=== PATIENT | female | born 1995 | race Caucasian/White ===

== ENCOUNTER 2017-08-25 17:26 | Emergency (ER) | payer OTHER ==
[~2017-08-25] VITALS: Ht 149.9 cm; Wt 68.0 kg
[2017-08-25 18:45] LABS: APPEARANCE,URINE CLEAR; BASOPHILS % (AUTO) 0.4 % (0.0-2.0); BILIRUBIN, URINE NEGATIVE (NEGATIVE); EOSINOPHILS % (AUTO) 0.6 % (0.0-3.0); GLUCOSE, URINE (UA) NEGATIVE (NEGATIVE); HEMATOCRIT 40.5 % (37.0-47.0); HEMOGLOBIN 13.7 G/DL (12.0-16.0); KETONES,URINE NEGATIVE (NEGATIVE); LEUKOCYTE ESTERASE ,URINE 3+ (NEGATIVE); LYMPHOCYTES % (AUTO) 26.1 % (20.0-45.0); MEAN CORPUSCULAR VOLUME 83 FL (80-99); MONOCYTES % (AUTO) 6.3 % (1.0-10.0); NEUTROPHILS % (AUTO) 66.6 % (45.0-75.0); NITRITE,URINE NEGATIVE (NEGATIVE); PH,URINE 6 (4.5-8.0); PLATELET COUNT 376 K/UL (150-450); PROTEIN,URINE 1+ (NEGATIVE); RED BLOOD COUNT 4.89 M/UL (4.20-5.40); RED CELL DISTRIBUTION WIDTH 12.5 % (11.6-14.8); UROBILINOGEN,URINE NORMAL MG/DL (0.0-1.0); WHITE BLOOD COUNT 8.1 K/UL (4.8-10.8)
[2017-08-25 18:46] LABS: COLOR,URINE YELLOW
[2017-08-25 19:02] LABS: ANION GAP 8 mmol/L (5-15); BLOOD UREA NITROGEN 9 mg/dL (7-18); CALCIUM 9.3 MG/DL (8.5-10.1); CARBON DIOXIDE 26 MMOL/L (21-32); CHLORIDE 103 MMOL/L (98-107); CREATININE 0.6 MG/DL (0.55-1.30); POTASSIUM 3.5 MMOL/L (3.5-5.1); SODIUM 137 MMOL/L (136-145)
[2017-08-25 19:07] LABS: ALANINE AMINOTRANSFERASE 54 U/L (12-78); ALBUMIN/GLOBULIN RATIO 0.9 (1.0-2.7); ALKALINE PHOSPHATASE 73 U/L (46-116); ASPARTATE AMINO TRANSFERASE 29 U/L (15-37); BILIRUBIN,TOTAL 0.2 MG/DL (0.2-1.0)
[2017-08-25 19:18] VITALS: BP 118/73
--- NOTE | 2017-08-25 19:27 | Emergency Room Report ---
History of Present Illness General Chief Complaint: Abdominal Pain Source: Patient Present Illness HPI 21-year-old female presents to the emergency department complaining of 7/10 in severity lower abdominal pain that she described as cramping. Patient reports that she is approximately 6 weeks her last period was in July. Patient states that she is . She denies vaginal bleeding, discharge, dysuria, hematuria or frequency. Denies nausea, vomiting, constipation or diarrhea. denies fevers or chills. was sent to ED by PMD for US to r/o ectopic. Allergies: Coded Allergies: No Known Allergies (Unverified , 08/25/17) Patient History Past Medical History: see triage record Past Surgical History: none Pertinent Family History: none Last Menstrual Period: 07/11/17 Now: Yes - 6 weeks : 1 Para: 0 Reviewed Nursing Documentation: PMH: Agreed, PSxH: Agreed Nursing Documentation-PMH Past Medical History: No Stated History Review of Systems All Other Systems: negative except mentioned in HPI Physical Exam Vital Signs Date Time Temp Pulse Resp B/P (MAP) Pulse Ox O2 Delivery O2 Flow Rate FiO2 08/25/17 17:36 98.1 75 17 123/74 97 Room Air 98.1 Sp02 EP Interpretation: reviewed, normal General Appearance: no apparent distress, alert, GCS 15, non-toxic Head: normocephalic, atraumatic ENT: hearing grossly normal, normal voice Neck: full range of motion Respiratory: lungs clear, normal breath sounds, speaking full sentences Cardiovascular #1: regular rate, rhythm Gastrointestinal: normal bowel sounds, non tender, soft Rectal: deferred Genitourinary: normal inspection, no CVA tenderness, other - deferred for US Musculoskeletal: back normal, gait/station normal, normal range of motion, non- tender Neurologic: alert, oriented x3, responsive, motor strength/tone normal, sensory intact, speech normal, grossly normal Psychiatric: judgement/insight normal Skin: normal color, no rash, warm/dry, well hydrated Medical Decision Making PA Attestation Dr. Foley is my supervising Physician whom patient management has been discussed with. Diagnostic Impression: Primary Impression: UTI (urinary tract infection) Qualified Codes: N30.01 - Acute cystitis with hematuria Additional Impressions: Positive test Abdominal pain during in first trimester Threatened in early ER Course 21-year-old female presents to the emergency department complaining of 7/10 in severity lower abdominal pain that she described as cramping. Patient reports that she is approximately 6 weeks her last period was in July. Patient states that she is . She denies vaginal bleeding, discharge, dysuria, hematuria or frequency. Denies nausea, vomiting, constipation or diarrhea. denies fevers or chills. was sent to ED by PMD for US to r/o ectopic. Ddx considered but are not limited to: , ectopic ,Spontaneous , Ovarian torsion, Ovarian cyst. PID, acute appendicitis, gall stones. Vital signs: are WNL, pt. is afebrile H&PE are most consistent with: Abdominal pain in early , possible ectopic. ORDERS: -Urine hcg- Positive -serum Hcg Quant: 3455 - Blood/RH type and screen- Pending - Ordered at 1804 was not drawn by RN. -Pelvic US complete- gestational sac in the uterus, no pole or HR. ED INTERVENTIONS: None at this time. - 4mg Zofran -1 Liter NS. DISCHARGE: At this time pt. is stable for d/c to home. Will provide printed patient care instructions, and any necessary prescriptions. Care plan and follow up instructions have been discussed with the patient prior to discharge. Labs Test 08/25/17 18:30 White Blood Count 8.1 K/UL (4.8-10.8) Red Blood Count 4.89 M/UL (4.20-5.40) Hemoglobin 13.7 G/DL (12.0-16.0) Hematocrit 40.5 % (37.0-47.0) Mean Corpuscular Volume 83 FL (80-99) Mean Corpuscular Hemoglobin 28.1 PG (27.0-31.0) Mean Corpuscular Hemoglobin Concent 33.9 G/DL (32.0-36.0) Red Cell Distribution Width 12.5 % (11.6-14.8) Platelet Count 376 K/UL (150-450) Mean Platelet Volume 6.5 FL (6.5-10.1) Neutrophils (%) (Auto) 66.6 % (45.0-75.0) Lymphocytes (%) (Auto) 26.1 % (20.0-45.0) Monocytes (%) (Auto) 6.3 % (1.0-10.0) Eosinophils (%) (Auto) 0.6 % (0.0-3.0) Basophils (%) (Auto) 0.4 % (0.0-2.0) Urine Color Yellow Urine Appearance Clear Urine pH 6 (4.5-8.0) Urine Specific [place] 1.025 (1.005-1.035) Urine Protein 1+ (NEGATIVE) Urine Glucose (UA) Negative (NEGATIVE) Urine Ketones Negative (NEGATIVE) Urine Occult Blood Negative (NEGATIVE) Urine Nitrite Negative (NEGATIVE) Urine Bilirubin Negative (NEGATIVE) Urine Urobilinogen Normal MG/DL (0.0-1.0) Urine Leukocyte Esterase 3+ (NEGATIVE) Urine RBC 2-4 /HPF (0 - 2) Urine WBC 5-10 /HPF (0 - 2) Urine Squamous Epithelial Cells Few /LPF (NONE/OCC) Urine Bacteria Moderate /HPF (NONE) Urine HCG, Qualitative Positive Sodium Level 137 MMOL/L (136-145) Potassium Level 3.5 MMOL/L (3.5-5.1) Chloride Level 103 MMOL/L (98-107) Carbon Dioxide Level 26 MMOL/L (21-32) Anion Gap 8 mmol/L (5-15) Blood Urea Nitrogen 9 mg/dL (7-18) Creatinine 0.6 MG/DL (0.55-1.30) Estimat Glomerular Filtration Rate > 60 mL/min (>60) Glucose Level 87 MG/DL (74-106) Calcium Level 9.3 MG/DL (8.5-10.1) Total Bilirubin 0.2 MG/DL (0.2-1.0) Aspartate Amino Transf (AST/SGOT) 29 U/L (15-37) Alanine Aminotransferase (ALT/SGPT) 54 U/L (12-78) Alkaline Phosphatase 73 U/L (46-116) Total Protein 8.4 G/DL (6.4-8.2) Albumin 4.0 G/DL (3.4-5.0) Globulin 4.4 g/dL Albumin/Globulin Ratio 0.9 (1.0-2.7) Human Chorionic Gonadotropin, Quant 3544 mIU/mL (1-6) CT/MRI/US Diagnostic Results CT/MRI/US Diagnostic Results : Impression PELVIC: Gest. Sac in uterus, no pole. Last Vital Signs Date Time Temp Pulse Resp B/P (MAP) Pulse Ox O2 Delivery O2 Flow Rate FiO2 08/25/17 19:18 98.2 69 16 118/73 98 Room Air 98.2 Disposition: HOME, SELF-CARE Condition: Stable Scripts Acetaminophen* (TYLENOL EXTRA STRENGTH*) 500 Mg Tablet 500 MG ORAL Q6H, #20 TAB 0 Refills Prov: Pearl Perez 08/25/17 Cmb#95/Iron/Fa/Dha ( + DHA COMBO PACK) 1 Each Combo..pkg 1 EACH PO DAILY for 30 Days, #1 PACK 4 Refills Prov: Pearl Perez 08/25/17 Nitrofurantoin Monohyd/M-Cryst* (MACROBID 100 MG*) 100 Mg Capsule 100 MG ORAL EVERY 12 HOURS for 5 Days, #10 CAP Prov: Pearl Perez. 08/25/17 Patient Instructions: Abdominal Pain During , Urinary Tract Infection , [id number] Additional Instructions: Take medications as directed. Follow up with a OBGYN within 3 days, even if your symptoms have resolved. Return sooner to ED if new symptoms occur, or current symptoms become worse. - Please note that this Emergency Department Report was dictated using [employer] technology software, occasionally this can lead to erroneous entry secondary to interpretation by the dictation equipment. Pearl Perez Aug 25, 2017 19:27
[2017-08-25 20:31] VITALS: BP 118/73
[2017-08-25] MEDS ORDERED: NITROFURANTOIN100 M2 ORAL (20:40)
[2017-08-25] MEDS ORDERED: TYLENOL EXTRA500 MG ORAL (20:40)
[2017-08-25] MEDS ORDERED: PRENATAL + DHA1 EAC2 PO (20:40)
--- NOTE | 2017-09-03 17:48 | Diagnostic Imaging Report ---
Indication: Pelvic pain, patient Technique: Transvaginal images only. No transabdominal images obtained, reason not stated. Attempts made at recalling the patient for repeat imaging but were not successful Comparison: none Findings: Exam is extremely limited,, as only scans including the gestational sac were obtained. There is a gestational sac within the endometrium. No pole or heart activity demonstrated. Gestational sac size was not measured Impression: Extremely limited exam, as described, demonstrating an intrauterine gestational sac but no pole
== END 2017-08-25 21:01 | disposition home or self-care (01) ==
LOC: EMR 18:20
DX: O23.41 Unspecified infection of urinary tract in pregnancy, first trimester (principal); O20.0 Threatened abortion; Z3A.01 Less than 8 weeks gestation of pregnancy
CPT/HCPCS: 76801; 76856; 80053; 81003; 81025; 84702; 85025; 87086; 99284